=== PATIENT | male | born 1980 | race Caucasian/White ===

== ENCOUNTER 2022-08-20 16:08 | Inpatient (IN) | payer SELFPAY ==
[~2022-08-20] VITALS: Ht 180.3 cm; Wt 172.8 kg
[2022-08-20] MEDS ORDERED: SODIUM CHLORIDE 0.9% 1000ML 1,000 ML IV STA ×2 (16:32)
[2022-08-20 17:01] LABS: BASOPHILS # (AUTO) 0.1 (0.0-0.1); BASOPHILS % 0.5 % (0.0-1.0); EOSINOPHILS # (AUTO) 0.1 (0.0-0.4); EOSINOPHILS % 0.4 % (0.0-6.0); HEMATOCRIT 38.4 % (38.2-49.6); HEMOGLOBIN 12.5 g/dL (14.0-18.0); LYMPHOCYTES # (AUTO) 2.2 (1.0-3.2); LYMPHOCYTES % 16.3 % (18.0-39.1); MEAN CORPUSCULAR HGB CONC 32.6 g/dL (31-35); MEAN CORPUSCULAR VOLUME 82.9 fL (81-99); MONOCYTES # (AUTO) 0.9 (0.2-0.8); MONOCYTES % 6.3 % (4.4-11.3); NEUTROPHILS # (AUTO) 10.2 (2.1-6.9); NEUTROPHILS % 75.9 % (38.7-80.0); PLATELET COUNT 389 x10e3/uL (140-360); RED BLOOD COUNT 4.63 x10e6/uL (4.3-5.7); RED CELL DISTRIBUTION WIDTH 15.2 % (11.7-14.4)
[2022-08-20 17:07] LABS: INR 1.07; PROTHROMBIN TIME 14.4 seconds (11.9-14.5)
[2022-08-20 17:08] LABS: PARTIAL THROMBOPLASTIN TIME 28.1 seconds (23.8-35.5)
[2022-08-20 17:09] LABS: CLARITY,URINE SL CLOUDY (CLEAR); COLOR,URINE YELLOW (YELLOW); KETONES,URINE TRACE (NEGATIVE); LEUKOCYTE ESTERASE ,URINE NEGATIVE (NEGATIVE); NITRITE,URINE NEGATIVE (NEGATIVE); PROTEIN,URINE DIPSTICK 1+ (NEGATIVE); URINE UROBILINOGEN 0.2 mg/dL (0.2 - 1)
[2022-08-20 17:19] LABS: ALBUMIN 3.3 g/dL (3.5-5.0); ALBUMIN/GLOBULIN RATIO 0.8 (0.8-2.0); ANION GAP 16.8 mmol/L (8-16); CALCIUM 9.2 mg/dL (8.4-10.2); CREATININE, SERUM 1.82 mg/dL (0.72-1.25); POTASSIUM 3.8 mmol/L (3.5-5.1)
[2022-08-20 17:21] LABS: AMORPHOUS SEDIMENT,URINE MODERATE (FEW); BACTERIA,URINE MODERATE /HPF; WBC,URINE (MAN) 0-5 /HPF (0-5)
[2022-08-20 17:27] LABS: CREATINE KINASE MB 3.4 ng/mL (0-5.0)
[2022-08-20 17:29] LABS: B-TYPE NATRIURETIC PEPTIDE2 19.2 pg/mL (0-100)
[2022-08-20] MEDS ORDERED: Vancomycin IV 1 GM in SODIUM CHLORIDE 0.9% 250ML 250 ML IV SCH (17:30)
[2022-08-20] MEDS ORDERED: ONDANSETRON HCL INJ 2MG/ML 2ML 2 MG/ML VIAL IV PRN (18:30)
[2022-08-20] MEDS: HYDROCODONE/APAP 5MG-325MG TAB PO PRN (20:13)
[2022-08-20] MEDS ORDERED: ALBUTEROL/IPRATROPIUM 3 ML NEB NEB PRN (20:30)
[2022-08-20] MEDS ORDERED: LIDOCAINE 4% PATCH TP PRN (20:30)
[2022-08-20] MEDS ORDERED: DOCUSATE SODIUM 100 MG CAP PO PRN (20:30)
[2022-08-20] MEDS ORDERED: POTASSIUM CHLORIDE 20 MEQ TAB CR PO PRN (20:30)
[2022-08-20] MEDS ORDERED: ACETAMINOPHEN 325 MG TAB PO PRN (20:30)
[2022-08-20] MEDS ORDERED: HYDRALAZINE HCL 20 MG/ML VIAL IV PRN (20:30)
[2022-08-20] MEDS ORDERED: SIMETHICONE 80 MG CHEW PO PRN (20:30)
[2022-08-20] MEDS ORDERED: DIPHENHYDRAMINE HCL 25 MG CAP PO PRN (20:30)
[2022-08-20] MEDS ORDERED: DEXTROSE 50% SYRINGE 50 ML IV PRN (20:30)
[2022-08-20] MEDS ORDERED: MELATONIN 5 MG TABLET PO PRN (20:30)
[2022-08-20] MEDS ORDERED: IPRATROPIUM BROMIDE 0.02% 2.5 ML NEB NEB PRN (20:45)
[2022-08-20] MEDS ORDERED: ALBUTEROL SULF 0.083% NEB SOLN 3 ML NEB NEB PRN (20:45)
[2022-08-20] MEDS: Morphine 4mg INJECTION 4 MG/ML INJ IV PRN (21:48)
[2022-08-20] MEDS: Vancomycin IV 1 GM in SODIUM CHLORIDE 0.9% 250ML 250 ML IV SCH (21:51)
[2022-08-20 23:16] VITALS: BP 139/80
[2022-08-20 23:45] VITALS: BP 139/80
[2022-08-20] MEDS ORDERED: LISINOPRIL40 MG PO (23:45)
[2022-08-20 23:50] VITALS: BP 139/80
[2022-08-21] VITALS (8 sets, daily range): BP systolic 124–139; BP diastolic 74–81
[2022-08-21] MEDS: SODIUM CHLORIDE 0.9% 1000ML 1,000 ML IV SCH ×2 (00:19→05:35)
[2022-08-21] MEDS: Morphine 4mg INJECTION 4 MG/ML INJ IV PRN ×5 (01:58→22:34)
[2022-08-21] MEDS: ONDANSETRON HCL INJ 2MG/ML 2ML 2 MG/ML VIAL IV PRN ×2 (01:59→07:31)
[2022-08-21 06:21] LABS: BASOPHILS # (AUTO) 0.1 (0.0-0.1); EOSINOPHILS # (AUTO) 0.2 (0.0-0.4); EOSINOPHILS % 3.2 % (0.0-6.0); HEMATOCRIT 34.4 % (38.2-49.6); LYMPHOCYTES # (AUTO) 2.1 (1.0-3.2); LYMPHOCYTES % 30.9 % (18.0-39.1); MEAN CORPUSCULAR HEMOGLOBIN 26.6 pg (28-32); MEAN CORPUSCULAR VOLUME 83.3 fL (81-99); MONOCYTES # (AUTO) 0.7 (0.2-0.8); MONOCYTES % 9.5 % (4.4-11.3); NEUTROPHILS # (AUTO) 3.7 (2.1-6.9); PLATELET COUNT 277 x10e3/uL (140-360); RED BLOOD COUNT 4.13 x10e6/uL (4.3-5.7); RED CELL DISTRIBUTION WIDTH 15.7 % (11.7-14.4)
[2022-08-21 06:45] LABS: ALBUMIN 2.8 g/dL (3.5-5.0); ALBUMIN/GLOBULIN RATIO 0.8 (0.8-2.0); CALCIUM 8.1 mg/dL (8.4-10.2); CREATININE, SERUM 1.26 mg/dL (0.72-1.25)
[2022-08-21] MEDS: PANTOPRAZOLE SOD 40 MG TABEC PO SCH (07:31)
[2022-08-21] MEDS: KETOROLAC TROMETHAMINE 30 MG/ML VIAL IV SCH ×2 (14:11→21:43)
[2022-08-21] MEDS: FUROSEMIDE INJ 10 MG/ML 4 ML VIAL IV SCH ×2 (14:11→21:42)
[2022-08-21] MEDS: ENOXAPARIN SOD INJ 40 MG/0.4 ML SYR SC SCH (17:21)
[2022-08-21] MEDS ORDERED: TRIAMCINOLONE ACET 0.1% CREAM 15 GM TUBE TOP SCH (18:00)
[2022-08-21] MEDS ORDERED: FUROSEMIDE INJ 10 MG/ML 4 ML VIAL ONE (21:36)
[2022-08-21] MEDS: TRIAMCINOLONE ACET 0.1% CREAM 15 GM TUBE TOP SCH (22:13)
[2022-08-21] MEDS: Vancomycin IV 1 GM in SODIUM CHLORIDE 0.9% 250ML 250 ML IV SCH (22:14)
[2022-08-22] VITALS (9 sets, daily range): BP systolic 112–136; BP diastolic 57–107
[2022-08-22] MEDS: Morphine 4mg INJECTION 4 MG/ML INJ IV PRN ×4 (02:44→20:26)
[2022-08-22] MEDS: KETOROLAC TROMETHAMINE 30 MG/ML VIAL IV SCH ×4 (02:45→23:38)
[2022-08-22] MEDS: PANTOPRAZOLE SOD 40 MG TABEC PO SCH (08:10)
[2022-08-22] MEDS: ENOXAPARIN SOD INJ 40 MG/0.4 ML SYR SC SCH (17:25)
[2022-08-22] MEDS: Vancomycin IV 1 GM in SODIUM CHLORIDE 0.9% 250ML 250 ML IV SCH (22:21)
[2022-08-22] MEDS: TRIAMCINOLONE ACET 0.1% CREAM 15 GM TUBE TOP SCH (22:22)
[2022-08-23] VITALS: BP 129/77
[2022-08-23 04:00] VITALS: BP 143/92
[2022-08-23] MEDS: Morphine 4mg INJECTION 4 MG/ML INJ IV PRN ×2 (04:19→12:49)
[2022-08-23 05:23] LABS: BASOPHILS # (AUTO) 0.1 (0.0-0.1); EOSINOPHILS # (AUTO) 0.3 (0.0-0.4); EOSINOPHILS % 5.1 % (0.0-6.0); HEMATOCRIT 36.5 % (38.2-49.6); HEMOGLOBIN 11.5 g/dL (14.0-18.0); LYMPHOCYTES # (AUTO) 1.7 (1.0-3.2); LYMPHOCYTES % 25.6 % (18.0-39.1); MEAN CORPUSCULAR HEMOGLOBIN 26.7 pg (28-32); MEAN CORPUSCULAR HGB CONC 31.5 g/dL (31-35); MEAN CORPUSCULAR VOLUME 84.9 fL (81-99); MONOCYTES # (AUTO) 0.6 (0.2-0.8); MONOCYTES % 8.2 % (4.4-11.3); NEUTROPHILS % 59.7 % (38.7-80.0); PLATELET COUNT 269 x10e3/uL (140-360)
[2022-08-23] MEDS: KETOROLAC TROMETHAMINE 30 MG/ML VIAL IV SCH ×2 (05:37→11:22)
[2022-08-23 08:00] VITALS: BP 149/44
[2022-08-23] MEDS: PANTOPRAZOLE SOD 40 MG TABEC PO SCH (08:08)
[2022-08-23] MEDS: HYDROCODONE/APAP 5MG-325MG TAB PO PRN (08:09)
[2022-08-23 08:15] VITALS: BP 149/74
[2022-08-23 11:49] VITALS: BP 135/74
[2022-08-23 15:59] VITALS: BP 154/88
== END 2022-08-23 16:30 | disposition home or self-care (01) | DRG 872 ==
LOC: ER 16:29 → ERHOLD 18:25 → MED/SURG3 22:56
PROVIDERS: ADMIT Internal Medicine; ATTEND Internal Medicine
DX: A41.9 Sepsis, unspecified organism (principal); L03.115 Cellulitis of right lower limb; Z68.43 Body mass index [BMI] 50.0-59.9, adult; N17.9 Acute kidney failure, unspecified; E66.01 Morbid (severe) obesity due to excess calories; I10 Essential (primary) hypertension; R00.0 Tachycardia, unspecified; R79.89 Other specified abnormal findings of blood chemistry; Z91.199 Patient's noncompliance with other medical treatment and regimen due to unspecified reason; Z20.822 Contact with and (suspected) exposure to COVID-19
CPT/HCPCS: 36415; 71045; 80053; 81001; 82550; 82553; 83036; 83605; 83735; 83880; 84484; 85025; 85610; 85730; 87040; 87086; 93005; 93971; 96361; 99252; 99284; J0692; J1650; J1885; J1940; J2270; J2405; J2543; J7030; J7050

== ENCOUNTER 2024-03-29 13:47 | Emergency (ER) | payer OTHER ==
[~2024-03-29] VITALS: Ht 180.3 cm; Wt 141.5 kg
[~2024-03-29 13:47] MED LIST: ACETAMINOPHEN-1 EAC4 PO; ACETAMINOPHEN325 M1 PO; AUGMENTIN 500-1 EACH PO; CEPHALEXIN500 MG PO; LISINOPRIL40 MG PO; MEDROL4 M2 PO; ONDANSETRON ODT4 MG PO; ORPHENADRINE C100 MG PO
[2024-03-29 13:56] VITALS: TEMP 98.4
[2024-03-29] MEDS ORDERED: LISINOPRIL40 MG PO (14:35)
[2024-03-29 14:36] VITALS: BP 166/107
[2024-03-29] MEDS: LISINOPRIL 20 MG TAB PO ONE (14:36)
[2024-03-29 14:57] VITALS: PULSE 79; RESP 16; O2SAT 99
== END 2024-03-29 15:19 | disposition home or self-care (01) ==
LOC: ER 14:14
DX: I10 Essential (primary) hypertension (principal); R51.9 Headache, unspecified
CPT/HCPCS: 99282